=== PATIENT | female | born 1945 | race Two or more races ===

== ENCOUNTER 2023-06-27 07:11 | Day surgery (SDC) | payer OTHER ==
[~2023-06-27 07:11] MED LIST: OMEGA-31000 MG PO; PROBIOTIC1 EAC4 PO; SIMVASTATIN5 MG PO
[2023-06-27] MEDS ORDERED: MACROBID 100 M100 MG PO (10:37)
[2023-06-27] MEDS ORDERED: TRAM1TAB98 PO (10:39)
== END 2023-06-27 17:20 | disposition home or self-care (01) ==
LOC: CIR.AMB 07:11
PROVIDERS: ATTEND Obstetrics & Gynecology Gynecology
DX: N81.11 Cystocele, midline (principal); N81.6 Rectocele; K46.9 Unspecified abdominal hernia without obstruction or gangrene; N89.4 Leukoplakia of vagina